=== PATIENT | male | born 1990 | race Caucasian/White ===

== ENCOUNTER → 2025-03-01 10:01 | Outpatient (CLI) | payer OTHER, SELFPAY ==
[2025-03-01 19:00] LABS: Hemoglobin 14.9 g/dL (13.5-17.5)
[2025-03-01 19:14] LABS: Blood Urea Nitrogen 13 mg/dL (9-20); Calcium 9.4 mg/dL (8.4-10.2); Carbon Dioxide 25 mmol/L (22-32); Chloride 101 mmol/L (98-107); Cholesterol 168 mg/dL (140-199); Estimated Glomerular Filt Rate > 60 mL/min (>60); Glucose 86 mg/dL (70-99); HDL Cholesterol 47 mg/dL (40-60); HEMOLYSIS 32 (0-50); Potassium 3.9 mmol/L (3.4-5.1); Sodium 137 mmol/L (137-145); Triglycerides 65 mg/dL (35-150)
[2025-03-01 19:36] LABS: Add Manual Diff / Slide Review YES; Hematocrit 41.8 % (41-53); Mean Corpuscular HGB Conc 35.7 % (30-36); Mean Corpuscular Hemoglobin 30.9 PG (26-34); Mean Corpuscular Volume 86.5 fL (80-100); Platelet Count 257 X10^3/uL (150-400)
[2025-03-01 20:11] LABS: Basophils Percent Manual 1.0 % (0-1); Eosinophils Percent Manual 3.0 % (2-4); Lymphocytes Percent Manual 55.0 % (25-45); Monocytes Percent Manual 1.0 % (2-11); Neutrophils Absolute Manual 2040 /uL (3000-5900); Segmented Neutrophils Percent 40.0 % (38-70); Total Cells Counted 100
[2025-03-01 20:12] LABS: RBC Morphology Normal Morphology
== END ==
PROVIDERS: Visit Provider Family Medicine
DX: Z13.1 Encounter for screening for diabetes mellitus (principal); Z12.5 Encounter for screening for malignant neoplasm of prostate; Z13.6 Encounter for screening for cardiovascular disorders; Z71.85 Encounter for immunization safety counseling
CPT/HCPCS: 80048; 80061; 85007; 85025; G0103